=== PATIENT | female | born 1990 | race Caucasian/White ===

== ENCOUNTER 2021-03-18 13:21 | Emergency (ER) | payer OTHER ==
--- OUTSIDE RECORDS SUMMARY | 2021-03-18 13:28 | XMS REPORT | Continuity of Care Document ---
:1990 Author Organization [facility] t Address [address] [place] [address] Care Team Providers Name Role Phone Pob, Lab Main Attending Clinician Unavailable Doctor Unassigned, Name Attending Clinician Unavailable Gibran KIM Attending Clinician Ultrasound Attending Clinician Unavailable Gibran KIM Admitting Clinician Problems This patient has no known problems. Allergies, Adverse Reactions, Alerts This patient has no known allergies or adverse reactions. Medications This patient has no known medications. Procedures This patient has no known procedures. Encounters Start End Encounter Admission Attending Care Care Encounter Source Date/Time Date/Time Type Type Clinicians Facility Department ID 2021-03-03 2021-03-03 Senior Media Director [facility] [id number] [id number] 09:25:29 09:40:29 Visit Lab Main [place] [id number] [place] [id number] Professio [phone] [address] 2021-02-28 2021-02-28 Senior Media Director [facility] [id number] 09:54:07 10:09:07 Visit Lab Main [place] [id number] [place] [id number] Professio [phone] [address] 2021-02-28 2021-02-28 Orders Doctor LOPES 1.2.840.114 [id number] 00:00:00 00:00:00 Only UnassignedJESI [id number] [place] [facility] [id number] 009 2021-02-28 2021-02-28 Case Tamar Leary [facility] [id number] 00:00:00 00:00:00 Management Amanda [id number] [place] [id number] Professio [phone] [facility] 2021-01-31 2021-01-31 Case Tamar Leary [facility] [id number] 00:00:00 00:00:00 Management Amanda [id number] [place] [id number] Professio [phone] [facility] 2021-01-28 2021-01-28 Senior Media Director Rossi, [facility] 1.2.840.114 [id number] 08:00:16 09:15:16 Visit [facility] 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 [id number] [facility] [id number] MATERNAL [phone] & CHILD [address] [place] [address] [facility] 2021-01-15 2021-01-15 [facility] Tamar Leary [facility] 1.2.840.114 [id number] 09:56:00 10:35:00 Encounter [place] [id number] [place] [id number] [place] [phone] [id number] 2020-12-31 2020-12-31 Senior Media Director Saran Askew [facility] 1.2.840.114 [id number] 10:27:34 10:42:34 Visit Lab Main [place] [id number] [place] [id number] Professio [phone] [facility] 2020-12-25 2020-12-25 Orders Doctor MOSES 1.2.840.114 [id number] 00:00:00 00:00:00 Only Unassigned, JESI [id number] [place] [facility] [id number] 009 2020-12-04 2020-12-04 Orders Doctor LOPES [id number] 00:00:00 00:00:00 Only Unassigned, JESI [id number] [place] [facility] [id number] [id number] 2020-11-14 2020-11-14 Senior Media Director Saran Askew [facility] 1.2.840.114 [id number] 08:21:13 08:36:13 Visit Lab Main [place] [id number] [place] [id number] Professmatt [phone] [address] Results This patient has no known results.
--- NOTE | 2021-03-18 16:09 | RAD REPORT ---
EXAM DESCRIPTION: US - Abdomen Exam Limited - 03/18/2021 3:53 pm CLINICAL HISTORY: Abdominal pain. COMPARISON: None. FINDINGS: Patient was not NPO which limits evaluation. The gallbladder is contracted. A gallstone is not seen. Gallbladder wall does not appear significantl y thickened. The biliary tree is normal caliber. IMPRESSION: Grossly normal examination
[2021-03-18] MEDS ORDERED: ACETAMINOPHEN 500 MG TAB ONE (16:24)
[2021-03-18] MEDS ORDERED: PROMETHAZINE INJ 25 MG/ML AMP ONE (16:24)
[2021-03-18] MEDS ORDERED: NA CHLORIDE 0.9% 1,000 ML ONE (16:24)
[2021-03-18 16:25] LABS: Absolute Lymphocytes (CBC) 1.6 K/uL (0.7-4.9); Basophils % 0.6 % (0-1.3); MPV 10.8 fL (7.6-11.3); RBC Red Blood Cell Count 4.36 M/uL (3.86-4.86)
[2021-03-18] MEDS ORDERED: FAMOTIDINE 20 MG/2 ML VIAL IV ONE (16:25)
[2021-03-18 16:43] LABS: ALT/SGPT 17 U/L (12-78); AST/SGOT 11 U/L (15-37); Albumin 2.7 g/dL (3.4-5.0); Alkaline Phosphatase 110 U/L (45-117); BUN Blood Urea Nitrogen 6 mg/dL (7-18); Bicarbonate 24 mmol/L (21-32); Bilirubin Direct < 0.1 mg/dL (0-0.2); Bilirubin Total 0.2 mg/dL (0.2-1.0); Glucose Level 92 mg/dL (74-106); Lipase 200 U/L (73-393); Potassium 3.6 mmol/L (3.5-5.1); Protein, Total 7.3 g/dL (6.4-8.2); Sodium Level 139 mmol/L (136-145)
--- NOTE | 2021-03-18 16:48 | ER ---
Nurse's Notes [facility] Name: Emilia Watson Age: 30 yrs Sex: Female : 1990 Arrival Date: 03/18/2021 Time: 13:29 Bed 24 Private MD: Diagnosis: Upper abdominal pain, unspecified Presentation: 03/18 14:57 Chief complaint: Patient states: Gallbladder problems for years, scheduled last year to [facility] have it removed then lost insurance. 27 weeks and have been having weekly gallbladder attack since 16 weeks , OB told me the next attack to go to the ER. Pain and nausea since 0200. Coronavirus screen: Client denies travel out of the [place] in the last 14 days. At this time, the client does not indicate any symptoms associated with coronavirus-19. Ebola Screen: No symptoms or risks identified at this time. Initial Sepsis Screen: Does the patient meet any 2 criteria? No. Patient's initial sepsis screen is negative. Does the patient have a suspected source of infection? No. Patient's initial sepsis screen is negative. Risk Assessment: Do you want to hurt yourself or someone else? Patient reports no desire to harm self or others. Onset of symptoms was March 17, 2021. Care prior to arrival: None. 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 - Social history:: Smoking status: Patient denies any tobacco usage or history of. Screenin:55 Abuse screen: Denies threats or abuse. Denies injuries from another. Nutritional ld1 screening: No deficits noted. Tuberculosis screening: No symptoms or risk factors identified. Fall Risk None identified. Assessment: 15:55 General: Appears in no apparent distress. uncomfortable, Behavior is cooperative, ld1 appropriate for age, crying. Pain: Complains of pain in right upper quadrant Pain does not radiate. Pain currently is 6 out of 10 on a pain scale. Quality of pain is described as burning, stabbing, throbbing, Pain began 1 day ago. Is continuous. Neuro: Level of Consciousness is awake, alert, obeys commands, Oriented to person, place, time, situation, Appropriate for age. Cardiovascular: Capillary refill < 3 seconds Patient's skin is warm and dry. Respiratory: Airway is patent Respiratory effort is even, unlabored, Respiratory pattern is regular, symmetrical. GI: Abdomen is round non-distended, Bowel sounds present X 4 quads. Abd is soft Abdomen is tender to palpation in right upper quadrant Reports upper abdominal pain. : No signs and/or symptoms were reported regarding the genitourinary system. EENT: No signs and/or symptoms were reported regarding the EENT system. Derm: No signs and/or symptoms reported regarding the dermatologic system. Musculoskeletal: No signs and/or symptoms reported regarding the musculoskeletal system. 16:54 Reassessment: Patient appears in no apparent distress at this time. No changes from ld1 previously documented assessment. Patient and/or family updated on plan of care and expected duration. Pain level reassessed. Patient is alert, oriented x 3, equal unlabored respirations, skin warm/dry/pink. Vital Signs: 14:57 BP 124 / 75; Pulse 87; Resp 17; Temp 98.0; Pulse Ox 100% ; Weight 102.97 kg; Pain 6/10; jl7 15:55 BP 146 / 93; Pulse 83; Resp 18; Pulse Ox 100% on R/A; Pain 6/10; ld1 16:54 BP 135 / 90; Pulse 86; Resp 18; Pulse Ox 100% ; ld1 ED Course: 13:29 Patient arrived in ED. wm 13:56 Nadiya Sy FNP-C is PHCP. kb 13:56 Ashvin Kiran MD is Attending Physician. kb 15:00 Triage completed. jl7 15:00 Arm band placed on right wrist. Patient placed in waiting room, Patient notified of jl7 wait time. 15:07 Nadiya Sy FNP-C is PHCP. kb 15:07 Ashvin Kiran MD is Attending Physician. kb 15:47 Beatrice Linder, FRANSISCA is Primary Nurse. ld1 15:50 US Abdomen Limited In Process Unspecified. EDMS 15:55 Patient has correct armband on for positive identification. Placed in gown. Bed in low ld1 position. Call light in reach. Side rails up X2. Pulse ox on. NIBP on. Door closed. Noise minimized. Warm blanket given. 15:55 No provider procedures requiring assistance completed. ld1 16:54 IV discontinued, intact, bleeding controlled, No redness/swelling at site. ld1 Administered Medications: 16:20 Drug: Tylenol 1000 mg Route: PO; ld1 19:41 Follow up: Response: No adverse reaction ld1 16:20 Drug: Pepcid (famotidine) 20 mg Route: IVP; Site: right antecubital; ld1 16:40 Follow up: Response: No adverse reaction ld1 16:20 Drug: Phenergan (promethazine) 6.25 mg Route: IVP; Site: right antecubital; ld1 16:40 Follow up: Response: No adverse reaction ld1 16:20 Drug: NS 0.9% 1000 ml Route: IV; Rate: 1000 ml; Site: right antecubital; ld1 16:40 Follow up: Response: No adverse reaction; IV Status: Completed infusion ld1 Outcome: 16:47 Discharge ordered by . sam 16:54 Discharged to home ambulatory. ld1 16:54 Condition: stable 16:54 Discharge instructions given to patient, Instructed on discharge instructions, follow up and referral plans. Demonstrated understanding of instructions, follow-up care. 16:54 Patient left the ED. ld1 Signatures: Dispatcher [employer] EDMS Nadiya Sy, DOREEN HIGUERA-Lemuel Shirley RN RN jl7 Beatrice Linder RN RN ld1 Cydney Ahn Corrections: (The following items were deleted from the chart) 15:03 15:00 PMHx: None; kristopher summers
--- NOTE | 2021-03-18 16:48 | EDPHYS ---
Physician Documentation [facility] Name: Emilia Watson Age: 30 yrs Sex: Female : 1990 Arrival Date: 03/18/2021 Time: 13:29 Bed 24 Private MD: ED Physician Ashvin Kiran HPI: 03/18 19:10 This 30 yrs old Female presents to ER via Ambulatory with complaints of kb Abdominal Pain - THINKS IT'S GALLBLADDER/27 WKS PREG. AND DOESN'T FEEL BABY IS IN DISTRESS. 19:10 The patient presents with abdominal pain in the right upper quadrant. The patient has kb not recently seen a physician. 19:11 Onset: The symptoms/episode began/occurred yesterday. The symptoms do not radiate. kb Associated signs and symptoms: Pertinent positives: nausea, Pertinent negatives: anorexia, blood in stools, chest pain, constipation, diarrhea, dysuria, fever, headache, hematuria, palpitations, shortness of breath, vaginal discharge, vomiting. The symptoms are described as constant. Modifying factors: The symptoms are alleviated by nothing, the symptoms are aggravated by pressure. Severity of pain: At its worst the pain was moderate in the emergency department the pain has improved. The patient has experienced similar episodes in the past, multiple times. Pt reports she was diagnosed with gallbladder issues 2 years ago and was supposed to have it removed, but didn't get it done. Has been having "gallbladder attacks" weekly ever since she was 16 weeks . OB told her to come to the ER if she had another one and this one started yesterday.. 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 - Social history:: Smoking status: Patient denies any tobacco usage or history of. ROS: 19:10 Constitutional: Negative for fever, chills, and weight loss. kb 19:10 Abdomen/GI: Positive for abdominal pain, nausea. 19:10 All other systems are negative. Exam: 19:08 Constitutional: This is a well developed, well nourished patient who is awake, alert, kb and in no acute distress. Head/Face: Normocephalic, atraumatic. ENT: Moist Mucous membranes Cardiovascular: Regular rate and rhythm with a normal S1 and S2. No gallops, murmurs, or rubs. No pulse deficits. Respiratory: Respirations even and unlabored. No increased work of breathing, no retractions or nasal flaring. Skin: Warm, dry with normal turgor. Normal color. MS/ Extremity: Pulses equal, no cyanosis. Neurovascular intact. Full, normal range of motion. Neuro: Awake and alert, GCS 15, oriented to person, place, time, and situation. Moves all extremities. Normal gait. Psych: Awake, alert, with orientation to person, place and time. Behavior, mood, and affect are within normal limits. 19:08 Abdomen/GI: Inspection: abdomen appears normal, Bowel sounds: normal, in all quadrants, Palpation: soft, in all quadrants, moderate abdominal tenderness, in the right upper quadrant. Vital Signs: 14:57 BP 124 / 75; Pulse 87; Resp 17; Temp 98.0; Pulse Ox 100% ; Weight 102.97 kg; Pain 6/10; jl7 15:55 BP 146 / 93; Pulse 83; Resp 18; Pulse Ox 100% on R/A; Pain 6/10; ld1 16:54 BP 135 / 90; Pulse 86; Resp 18; Pulse Ox 100% ; ld1 MDM: 15:46 Patient medically screened. 19:06 Data reviewed: vital signs, nurses notes. Data interpreted: Pulse oximetry: on room air kb is 100 %. Interpretation: normal. 19:11 Counseling: I had a detailed discussion with the patient and/or guardian regarding: the kb historical points, exam findings, and any diagnostic results supporting the discharge/admit diagnosis, lab results, radiology results, the need for outpatient follow up, a general surgeon, an OB/Gyne specialist, to return to the emergency department if symptoms worsen or persist or if there are any questions or concerns that arise at home. 19:14 ED course: Pt cleared by L\\T\\D prior to coming down to the ER. kb 03/18 15:54 Order name: Basic Metabolic Panel; Complete Time: 16:43 kb 03/18 15:54 Order name: CBC with Diff; Complete Time: 16:31 kb 03/18 15:07 Order name: US Abdomen Limited; Complete Time: 16:20 kb 03/18 15:54 Order name: Hepatic Function; Complete Time: 16:43 kb 03/18 15:54 Order name: Lipase; Complete Time: 16:43 kb 03/18 15:54 Order name: IV Saline Lock; Complete Time: 16:24 kb 03/18 15:54 Order name: Labs collected and sent; Complete Time: 16:24 kb Administered Medications: 16:20 Drug: Tylenol 1000 mg Route: PO; ld1 19:41 Follow up: Response: No adverse reaction ld1 16:20 Drug: Pepcid (famotidine) 20 mg Route: IVP; Site: right antecubital; ld1 16:40 Follow up: Response: No adverse reaction ld1 16:20 Drug: Phenergan (promethazine) 6.25 mg Route: IVP; Site: right antecubital; ld1 16:40 Follow up: Response: No adverse reaction ld1 16:20 Drug: NS 0.9% 1000 ml Route: IV; Rate: 1000 ml; Site: right antecubital; ld1 16:40 Follow up: Response: No adverse reaction; IV Status: Completed infusion ld1 Disposition Summary: 03/18/21 16:47 Discharge Ordered Location: Home kb Condition: Stable kb Diagnosis - Upper abdominal pain, unspecified kb Followup: kb - With: Emergency Department - When: As needed - Reason: Worsening of condition Followup: kb - With: Private Physician - When: 2 - 3 days - Reason: Recheck today's complaints, Continuance of care, Re-evaluation by your physician Discharge Instructions: - Discharge Summary Sheet kb - Biliary Colic, Adult kb - Abdominal Pain, Adult, [id number] kb Forms: - Medication Reconciliation Form kb - Thank You Letter kb - Antibiotic Education kb - Prescription Opioid Use kb Addendum: 03/20/2021 19:18 Co-signature as Attending Physician, Ashvin Kiran MD. r n Signatures: Dispatcher [employer] EDNadiya Chen, DAVIDA-C DAVIDA-Ashvin Rivero MD MD rn Leal, Jahala, RN RN jl7 Beatrice Linder RN RN ld1 Corrections: (The following items were deleted from the chart) 03/18 15:03 15:00 PMHx: None; jl7 jl7 : 19:08 Respiratory: Negative for shortness of breath, cough, wheezing, and pleuritic kb chest pain, kb 19:08 Constitutional: Positive for body aches, chills, malaise, kb kb :08 08:08 Abdomen/GI: Positive for abdominal pain, nausea, diarrhea, kb kb :08 08:08 All other systems are negative, kb kb
[2021-03-18 17:01] VITALS: TEMP 98; O2SAT 100
[2021-03-18 17:03] VITALS: BP 135/90
== END 2021-03-18 16:54 | disposition home or self-care (01) ==
LOC: ER 13:21
DX: O26.892 Other specified pregnancy related conditions, second trimester (principal); Z3A.16 16 weeks gestation of pregnancy; Z88.1 Allergy status to other antibiotic agents
CPT/HCPCS: 85025; 80048; 36415; 80076; 83690; 76705; J2550; J7030; 96374; 96375; 99283

== ENCOUNTER 2022-03-09 15:27 | Emergency (ER) | payer OTHER ==
[2022-03-09 17:17] LABS: Urine Blood Trace-intact (Negative); Urine Glucose Negative (Negative); Urine Protein Negative (Negative); Urine pH 6.5 (5.0-7.0)
[2022-03-09 17:21] LABS: Absolute Lymphocytes (CBC) 1.7 K/uL (0.7-4.9); Hematocrit 35.5 % (36.0-45.0); Lymphocytes % 14.7 % (15.3-44.8); MPV 8.9 fL (7.6-11.3); RBC Red Blood Cell Count 4.93 M/uL (3.86-4.86)
[2022-03-09 17:43] LABS: Albumin 3.7 g/dL (3.4-5.0); Bilirubin Total 0.3 mg/dL (0.2-1.0); Potassium 3.7 mmol/L (3.5-5.1); Protein, Total 7.9 g/dL (6.4-8.2)
[2022-03-09] MEDS ORDERED: ONDANSETRON 4 MG/2 ML VIAL ONE (17:53)
[2022-03-09] MEDS ORDERED: NA CHLORIDE 0.9% 1,000 ML ONE (17:53)
[2022-03-09] MEDS ORDERED: MORPHINE 4 MG/ML SYR ONE (17:53)
--- NOTE | 2022-03-09 18:25 | RAD REPORT ---
EXAM DESCRIPTION: CTAbdomen Pelvis W Contrast - 03/09/2022 6:13 pm CLINICAL HISTORY: RLQ abdominal pain COMPARISON: No comparisons TECHNIQUE: CT of the abdomen and pelvis was performed with contrast. All CT scans are performed using dose optimization technique as appropriate and may include automated exposure control or mA/KV adjustment according to patient size. FINDINGS: Lower chest: No acute abnormality. Liver: No acute abnormality or suspicious lesions. Biliary: Cholecystectomy Stomach: No significant focal abnormality. Duodenum: No significant focal abnormality. Pancreas: No significant abnormality. Spleen: No significant abnormality. Adrenal: No suspicious lesions. Kidney/ureter: No hydronephrosis. No renal calculi. Retroperitoneum: No retroperitoneal adenopathy. Vascular: No aneurysm. Bowel: No significant focal abnormality. Normal appendix Peritoneum: No ascites or free air. Bladder: Grossly unremarkable. Reproductive: No adnexal masses. Bones: No acute fracture. Other: n/a IMPRESSION: No acute intra-abdominal or pelvic finding. Normal appendix.
--- NOTE | 2022-03-09 18:41 | ER ---
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 Coronavirus screen: At this time, the client does not indicate any symptoms associated with coronavirus-19. Ebola Screen: Patient negative for fever greater than or equal to 101.5 degrees Fahrenheit, and additional compatible Ebola Virus Disease symptoms Patient denies exposure to infectious person. Patient denies travel to an Ebola-affected area in the 21 days before illness onset. No symptoms or risks identified at this time. Initial Sepsis Screen: Does the patient meet any 2 criteria? No. Patient's initial sepsis screen is negative. Does the patient have a suspected source of infection? No. Patient's initial sepsis screen is negative. Risk Assessment: Do you want to hurt yourself or someone else? Patient reports no desire to harm self or others. Onset of symptoms was March 09, 2022. 17:03 Method Of Arrival: Ambulatory iw 17:03 Acuity: PATRICK 3 iw Triage Assessment: 18:00 General: Appears in no apparent distress. Behavior is calm, cooperative. Pain: iw Complains of pain in right lower quadrant and right upper quadrant. GI: Abdomen is Reports upper abdominal pain, nausea. Historical: - Allergies: 17:05 Amoxicillin; iw - PMHx: 17:05 Anemia; PREECLAMPSIA; iw - PSHx: 17:05 right wrist; Cholecystectomy; iw - Immunization history:: Adult Immunizations unknown. - Social history:: Smoking status: unknown. Screenin:03 Abuse screen: Denies threats or abuse. Denies injuries from another. Nutritional iw screening: No deficits noted. Tuberculosis screening: No symptoms or risk factors identified. Fall Risk IV access (20 points). Assessment: 18:03 Reassessment: Patient appears in no apparent distress at this time. Patient and/or iw family updated on plan of care and expected duration. Pain level reassessed. Patient is alert, oriented x 3, equal unlabored respirations, skin warm/dry/pink. 18:05 GI: Bowel sounds present X 4 quads. Abd is soft X 4 quads Abdomen is tender to iw palpation in right upper quadrant and right lower quadrant. Vital Signs: 17:03 BP 112 / 59; Pulse 95; Resp 16; Temp 99.0; Pulse Ox 98% on R/A; iw ED Course: 15:28 Patient arrived in ED. as 17:01 Stefano Hamm MD is Attending Physician. [facility] 17:04 Triage completed. iw 17:05 Arm band placed on. iw 17:06 America Kinney, RN is Primary Nurse. iw 17:09 Initial lab(s) drawn, by ED staff, sent to lab. Inserted saline lock: 20 gauge in left dh3 antecubital area, using aseptic technique. Blood collected. 17:19 Urine collected: clean catch specimen, clear. dh3 18:05 Patient has correct armband on for positive identification. iw 18:15 CT Abd/Pelvis - IV Contrast Only In Process Unspecified. EDIL 18:39 Vance Holland MD is Referral Physician. [facility] 18:46 No provider procedures requiring assistance completed. IV discontinued, intact, iw bleeding controlled, No redness/swelling at site. Pressure dressing applied. Administered Medications: 17:53 Drug: NS 0.9% 1000 ml Route: IV; Rate: 1 bolus; Site: left antecubital; iw 18:50 Follow up: IV Status: Completed infusion iw 17:53 Drug: morphine 4 mg Route: IVP; Infused Over: 4 mins; Site: left antecubital; iw 18:15 Follow up: Response: No adverse reaction; Pain is decreased iw 17:53 Drug: Zofran (Ondansetron) 4 mg Route: IVP; Site: left antecubital; iw 18:10 Follow up: Response: No adverse reaction iw Medication: 18:00 VIS not applicable for this client. iw Outcome: 18:40 Discharge ordered by . [facility] 18:46 Discharged to home ambulatory. iw 18:46 Condition: good 18:46 Discharge instructions given to patient, Instructed on discharge instructions, follow up and referral plans. medication usage, Demonstrated understanding of instructions, follow-up care, medications, Prescriptions given X 3. 18:47 Patient left the ED. iw Signatures: Dispatcher [employer] EDIL Stefano Hamm MD MD cha Martinez, Amelia as America Kinney RN RN Jessica Peralta 3 Corrections: (The following items were deleted from the chart) 17:06 17:03 Chief complaint: Patient states: RLQ pain since this morning , thinks it's her iw appendix , recently had gallbladder taken out iw
--- NOTE | 2022-03-09 18:41 | EDPHYS ---
Physician Documentation [facility] Name: Emilia Ruggiero Age: 31 yrs Sex: Female : 1990 Arrival Date: 03/09/2022 Time: 15:28 Bed DIS15 Private MD: ED Physician Stefano Hamm HPI: 03/09 18:32 This 31 yrs old Female presents to ER via Ambulatory with complaints of diamante Abdominal Pain. 18:32 The patient presents with abdominal pain right lower quadrant, abdominal distention in diamante the lower abdomen. Onset: The symptoms/episode began/occurred 3 day(s) ago. Historical: - Allergies: 17:05 Amoxicillin; iw - PMHx: 17:05 Anemia; PREECLAMPSIA; iw - PSHx: 17:05 right wrist; Cholecystectomy; iw - Immunization history:: Adult Immunizations unknown. - Social history:: Smoking status: unknown. ROS: 18:36 Constitutional: Negative for fever, chills, and weight loss, Eyes: Negative for injury, diamante pain, redness, and discharge, ENT: Negative for injury, pain, and discharge, Neck: Negative for injury, pain, and swelling, Cardiovascular: Negative for chest pain, palpitations, and edema, Respiratory: Negative for shortness of breath, cough, wheezing, and pleuritic chest pain, Back: Negative for injury and pain, : Negative for injury, bleeding, discharge, and swelling, MS/Extremity: Negative for injury and deformity, Skin: Negative for injury, rash, and discoloration, Neuro: Negative for headache, weakness, numbness, tingling, and seizure, Psych: Negative for depression, anxiety, suicide ideation, homicidal ideation, and hallucinations, Allergy/Immunology: Negative for hives, rash, and allergies, Endocrine: Negative for neck swelling, polydipsia, polyuria, polyphagia, and marked weight changes, Hematologic/Lymphatic: Negative for swollen nodes, abnormal bleeding, and unusual bruising. 18:36 Abdomen/GI: Positive for abdominal pain, of the right upper quadrant and right lower quadrant. Exam: 18:36 Constitutional: This is a well developed, well nourished patient who is awake, alert, diamante and in no acute distress. Head/Face: Normocephalic, atraumatic. Eyes: Pupils equal round and reactive to light, extra-ocular motions intact. Lids and lashes normal. Conjunctiva and sclera are non-icteric and not injected. Cornea within normal limits. Periorbital areas with no swelling, redness, or edema. ENT: Nares patent. No nasal discharge, no septal abnormalities noted. Tympanic membranes are normal and external auditory canals are clear. Oropharynx with no redness, swelling, or masses, exudates, or evidence of obstruction, uvula midline. Mucous membranes moist. Neck: Trachea midline, no thyromegaly or masses palpated, and no cervical lymphadenopathy. Supple, full range of motion without nuchal rigidity, or vertebral point tenderness. No Meningismus. Chest/axilla: Normal chest wall appearance and motion. Nontender with no deformity. No lesions are appreciated. Cardiovascular: Regular rate and rhythm with a normal S1 and S2. No gallops, murmurs, or rubs. Normal PMI, no JVD. No pulse deficits. Respiratory: Lungs have equal breath sounds bilaterally, clear to auscultation and percussion. No rales, rhonchi or wheezes noted. No increased work of breathing, no retractions or nasal flaring. Back: No spinal tenderness. No costovertebral tenderness. Full range of motion. Female : Normal external genitalia. Skin: Warm, dry with normal turgor. Normal color with no rashes, no lesions, and no evidence of cellulitis. MS/ Extremity: Pulses equal, no cyanosis. Neurovascular intact. Full, normal range of motion. Neuro: Awake and alert, GCS 15, oriented to person, place, time, and situation. Cranial nerves II-XII grossly intact. Motor strength 5/5 in all extremities. Sensory grossly intact. Cerebellar exam normal. Normal gait. Psych: Awake, alert, with orientation to person, place and time. Behavior, mood, and affect are within normal limits. 18:36 An electrocardiogram was deferred on this patient at the patient's request 18:36 Abdomen/GI: Inspection: distension, that is mild, Bowel sounds: normal, Palpation: mild abdominal tenderness, in the right lower quadrant, Liver: no appreciated palpable abnormalities, Hernia: not appreciated. 18:36 Musculoskeletal/extremity: DVT Exam: No signs of deep vein thrombosis. no pain, no swelling, no tenderness, negative Homans' sign noted on exam, no appreciated bluish discoloration, no erythema, no increased warmth. 18:38 Musculoskeletal/extremity: Circulation is intact in all extremities. Sensation intact. diamante Compartment Syndrome exam of affected extremity: is normal. Vital Signs: 17:03 BP 112 / 59; Pulse 95; Resp 16; Temp 99.0; Pulse Ox 98% on R/A; iw MDM: 17:01 Patient medically screened. diamante 18:37 Differential diagnosis: bowel obstruction, diverticulitis, Endometriosis, Irritable diamante bowel syndrome, non-specific abd pain, pancreatitis, Pelvic Inflammatory Disease, Pyelonephritis, Ureterolithiasis, urinary tract infection. Data reviewed: vital signs, nurses notes, lab test result(s), radiologic studies, CT scan. 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 Test interpretation: by ED physician or midlevel provider:. Counseling: I had a detailed discussion with the patient and/or guardian regarding: the historical points, exam findings, and any diagnostic results supporting the discharge/admit diagnosis, lab results, radiology results, the need for outpatient follow up, for definitive care, a general surgeon. 03/09 17:01 Order name: CBC with Diff; Complete Time: 18:10 iw 03/09 17:01 Order name: CMP; Complete Time: 18:10 iw 03/09 17:01 Order name: Lipase; Complete Time: 18:10 03/09 17:17 Order name: Urine Dipstick-Ancillary; Complete Time: 17:30 EDMS 03/09 17:19 Order name: Urine --Ancillary (enter results); Complete Time: 18:24 dh3 03/09 17:30 Order name: CT Abd/Pelvis - IV Contrast Only; Complete Time: 18:32 diamante 03/09 17:01 Order name: IV Saline Lock; Complete Time: 17:18 iw 03/09 17:01 Order name: Labs collected and sent; Complete Time: 17:18 iw 03/09 17:01 Order name: Urine Dipstick-Ancillary (obtain specimen); Complete Time: 17:18 iw 03/09 17:01 Order name: Urine Test (obtain specimen); Complete Time: 17:18 iw Administered Medications: 17:53 Drug: NS 0.9% 1000 ml Route: IV; Rate: 1 bolus; Site: left antecubital; iw 18:50 Follow up: IV Status: Completed infusion iw 17:53 Drug: morphine 4 mg Route: IVP; Infused Over: 4 mins; Site: left antecubital; iw 18:15 Follow up: Response: No adverse reaction; Pain is decreased iw 17:53 Drug: Zofran (Ondansetron) 4 mg Route: IVP; Site: left antecubital; iw 18:10 Follow up: Response: No adverse reaction iw Disposition Summary: 03/09/22 18:40 Discharge Ordered Location: Home diamante Problem: new diamante Symptoms: have improved diamante Condition: Stable diamante Diagnosis - Abdominal tenderness diamante - Nausea diamante Followup: diamante - With: Private Physician - When: 2 - 3 days - Reason: Recheck today's complaints, Continuance of care, Re-evaluation by your physician Followup: diamante - With: Vance Holland MD - When: 2 - 3 days - Reason: Recheck today's complaints, Re-evaluation by your physician Discharge Instructions: - Discharge Summary Sheet diamante - Abdominal Pain, Adult diamante - Nausea, Adult diamante - Nausea and Vomiting, Adult, [id number] diamante - Abdominal Pain, Adult, [id number] [facility] Forms: - Medication Reconciliation Form [facility] - Thank You Letter diamante - Antibiotic Education diamante - Prescription Opioid Use [facility] Prescriptions: - Pepcid 20 mg Oral Tablet - take 1 tablet by ORAL route every 12 hours for 10 days; 20 tablet; Refills: 0, [facility] Product Selection Permitted - Zofran 4 mg Oral Tablet - take 1 tablet by ORAL route every 12 hours As needed; 20 tablet; Refills: 0, [facility] Product Selection Permitted - dicyclomine 20 mg Oral Tablet - take 1 tablet by ORAL route 4 times per day; 28 tablet; Refills: 0, Product [facility] Selection Permitted Signatures: Dispatcher [employer] Stefano Sears MD MD cha Williams, Irene RN RN iw
[2022-03-09 18:55] VITALS: BP 112/59; TEMP 99; O2SAT 98
== END 2022-03-09 18:47 | disposition home or self-care (01) ==
LOC: ER 15:27
DX: R10.819 Abdominal tenderness, unspecified site (principal); R11.0 Nausea; Z88.1 Allergy status to other antibiotic agents
CPT/HCPCS: 85025; 36415; 81025; 81003; 83690; 80053; 74177; Q9967; J7030; J2405; 96361; 96374; 96375; 99284